=== PATIENT | male | born 1975 | race Caucasian/White ===

== ENCOUNTER 2025-08-01 18:07 | Inpatient (IN) | payer OTHER ==
[~2025-08-01] VITALS: Ht 177.8 cm; Wt 82.3 kg
[2025-08-01 20:08] LABS: APPEARANCE,URINE CLEAR (CLEAR); GLUCOSE, URINE (UA) NEGATIVE (NEGATIVE); LEUKOCYTE ESTERASE ,URINE NEGATIVE (NEGATIVE); NITRATE,URINE NEGATIVE (NEGATIVE); OCCULT BLOOD,URINE NEGATIVE (NEGATIVE); PH,URINE DRUG SCREEN 6.0 (5.0-8.0); SPECIFIC GRAVITIY, URINE 1.023 (1.003-1.030)
[2025-08-01 20:11] LABS: GLUCOMETER DEV NAME(LOC) ERT.7; GLUCOSE,POINT OF CARE 109 MG/DL (70-110)
[2025-08-01 20:13] LABS: ALCOHOL, URINE DRUG SCREEN NEGATIVE (NEGATIVE); AMPHET/METH SCREEN,URINE POSITIVE (NEGATIVE); BARBITURATE SCREEN, URINE NEGATIVE (NEGATIVE); CANNABINOID SCREEN,URINE POSITIVE (NEGATIVE); COCAINE SCREEN,URINE NEGATIVE (NEGATIVE); METHADONE SCREEN, URINE NEGATIVE (NEGATIVE)
[2025-08-01 20:15] LABS: CALCIUM, TOTAL 8.9 mg/dL (8.8-10.5); CREATININE 0.84 mg/dL (0.60-1.30); GLOMERULAR FILTR. RATE CALC > 60 mL/min (>60); GLUCOSE,RANDOM 98 mg/dL (70-110); SODIUM SERUM 138 mmol/L (136-145); UREA NITROGEN, BLOOD 13 mg/dL (7-18)
[2025-08-01 20:24] LABS: PLATELET COUNT (AUTO) 325 K/uL (150-450); RED BLOOD CELL COUNT(AUTO) 4.59 MIL/uL (4.50-5.90); RED CELL DISTRIBUTION WIDTH 15.4 % (11.5-14.5); WHITE BLOOD COUNT (AUTO) 7.1 K/uL (4.5-11.0)
[2025-08-01] MEDS: BUPRENORPHINE HCL/NALOXONE HCL 8-2 MG SUBLINGUAL TABLET SL ONE (21:41)
[2025-08-01] MEDS ORDERED: IBUPROFEN 600 MG TABLET PO PRN (23:45)
[2025-08-01] MEDS ORDERED: MAG HYDROX/ALUMINUM HYD/SIMETH ES 30 ML SUSPENSION UDCUP PO PRN (23:45)
[2025-08-01] MEDS ORDERED: LORazepam 2 MG/ML VIAL IVP PRN (23:45)
[2025-08-02 02:15] VITALS: BP 107/66; PULSE 71; RESP 18; TEMP 98.1; O2SAT 97
[2025-08-02 04:35] VITALS: BP 115/62; PULSE 67; RESP 18; TEMP 98.1; O2SAT 97
[2025-08-02 05:59] LABS: PLATELET COUNT (AUTO) 292 K/uL (150-450); RED BLOOD CELL COUNT(AUTO) 4.43 MIL/uL (4.50-5.90); RED CELL DISTRIBUTION WIDTH 15.6 % (11.5-14.5); WHITE BLOOD COUNT (AUTO) 5.4 K/uL (4.5-11.0)
[2025-08-02 06:13] LABS: CALCIUM, TOTAL 8.4 mg/dL (8.8-10.5); CREATININE 0.68 mg/dL (0.60-1.30); GLOMERULAR FILTR. RATE CALC > 60 mL/min (>60); GLUCOSE,RANDOM 131 mg/dL (70-110); SODIUM SERUM 138 mmol/L (136-145); UREA NITROGEN, BLOOD 12 mg/dL (7-18)
[2025-08-02 06:56] LABS: GLUCOMETER DEV NAME(LOC) 6N.1C; GLUCOSE,POINT OF CARE 128 MG/DL (70-110)
[2025-08-02 09:09] VITALS: BP 107/73; PULSE 71; RESP 18; TEMP 97.7; TEMP 97.9; O2SAT 98
[2025-08-02] MEDS ORDERED: HYDR50CA7 PO (09:56)
[2025-08-02] MEDS ORDERED: FINA-27 PO (09:56)
[2025-08-02] MEDS ORDERED: TAMS0.4C94 PO (09:56)
[2025-08-02] MEDS ORDERED: TRAZ-257 PO (09:56)
[2025-08-02] MEDS ORDERED: ARIP10TA38 PO (09:56)
[2025-08-02] MEDS ORDERED: BUPR1FIL7 SL (10:08)
[2025-08-02] MEDS ORDERED: DOCUSATE SODIUM 100 MG CAPSULE PO PRN (11:00)
[2025-08-02] MEDS: TAMSULOSIN HCL 0.4 MG CAPSULE PO SCH (12:24)
[2025-08-02] MEDS: BICTEGRAV/EMTRICIT/TENOFOV ALA 50-200-25 MG TABLET PO SCH (12:24)
[2025-08-02] MEDS ORDERED: METH2.5T47 PO (18:50)
[2025-08-02 20:00] VITALS: BP 113/64; PULSE 84; RESP 18; TEMP 97.9; O2SAT 98
[2025-08-02] MEDS: NEOMYCIN/BACITRACIN/POLYMYXIN B 30 GM OINTMENT TP SCH (21:16)
[2025-08-03 04:00] VITALS: BP 101/66; PULSE 76; RESP 18; TEMP 97.7; O2SAT 97
[2025-08-03 05:41] LABS: PLATELET COUNT (AUTO) 296 K/uL (150-450); RED BLOOD CELL COUNT(AUTO) 4.68 MIL/uL (4.50-5.90); RED CELL DISTRIBUTION WIDTH 15.3 % (11.5-14.5); WHITE BLOOD COUNT (AUTO) 7.6 K/uL (4.5-11.0)
[2025-08-03 05:51] LABS: CALCIUM, TOTAL 8.6 mg/dL (8.8-10.5); CREATININE 0.78 mg/dL (0.60-1.30); GLOMERULAR FILTR. RATE CALC > 60 mL/min (>60); GLUCOSE,RANDOM 100 mg/dL (70-110); SODIUM SERUM 135 mmol/L (136-145); UREA NITROGEN, BLOOD 11 mg/dL (7-18)
[2025-08-03] MEDS: FINASTERIDE 5 MG TABLET PO SCH (08:12)
[2025-08-03 08:35] VITALS: BP 103/70; PULSE 82; RESP 18; TEMP 98.1; O2SAT 98
[2025-08-03 15:15] VITALS: BP 117/57; PULSE 76; RESP 18; TEMP 98.4; O2SAT 96
[2025-08-03] MEDS: DOCUSATE SODIUM 100 MG CAPSULE PO ONE (17:38)
[2025-08-03] MEDS: POLYETHYLENE GLYCOL 3350 17 GM PACKET PO ONE (17:38)
[2025-08-03] MEDS: SENNOSIDES 8.8 MG/5 ML SYRUP UDCUP PO ONE (17:38)
[2025-08-03 19:23] VITALS: BP 105/64; PULSE 83; RESP 18; TEMP 98.1; O2SAT 99
[2025-08-03] MEDS: BUPRENORPHINE HCL/NALOXONE HCL 2-0.5 MG SUBLINGUAL TABLET SL SCH (20:35)
[2025-08-09] MEDS ORDERED: METHOTREXATE SODIUM 2.5 MG TABLET PO SCH (09:00)
== END 2025-08-04 00:46 | DRG 897 ==
LOC: EMS 18:30 → EDH 23:34 → 6N 08-02 02:15
PROVIDERS: ADMIT Internal Medicine; ATTEND Internal Medicine
DX: F11.93 Opioid use, unspecified with withdrawal (principal); F15.10 Other stimulant abuse, uncomplicated; E11.9 Type 2 diabetes mellitus without complications; E78.5 Hyperlipidemia, unspecified; N40.0 Benign prostatic hyperplasia without lower urinary tract symptoms; F32.A Depression, unspecified; L40.9 Psoriasis, unspecified; F41.9 Anxiety disorder, unspecified; I10 Essential (primary) hypertension; G89.29 Other chronic pain; Z79.899 Other long term (current) drug therapy
CPT/HCPCS: 80048; 80307; 81003; 82962; 85025; 93005; 99285; G0378